=== PATIENT | male | born 2000 | race Caucasian/White ===

== ENCOUNTER 2022-02-04 17:03 | Outpatient (CLI) | payer OTHER, SELFPAY ==
[2022-02-04 17:49] LABS: T4 Thyroxine 5.89 ug/dL (5.53-11.0)
== END 2022-02-04 17:04 | disposition home or self-care (01) ==
PROVIDERS: PCP Family Medicine; Visit Provider Nurse Practitioner Family
DX: F41.9 Anxiety disorder, unspecified (principal)
CPT/HCPCS: 36415; 84436; 84443

== ENCOUNTER 2022-03-30 11:36 | Emergency (ER) | payer OTHER, SELFPAY ==
[2022-03-30 11:43] VITALS: BP 131/81; PULSE 67; RESP 20; TEMP 36.3; O2SAT 98
--- NOTE | 2022-03-30 12:39 | ED.ALLEREA ---
HPI - Allergic Reaction General Chief complaint: Allergic Reaction Stated complaint: rash Time Seen by Provider: 03/30/22 12:09 Source: patient Mode of arrival: ambulatory Limitations: no limitations History of Present Illness HPI narrative: 21 years old white male presents with itching rash started 24 hours ago, playing ball in the field with a lot of trees and bushes, also complaining of cold sores on the upper left started 2 days ago. He denies any fever, chills, nausea, vomiting, difficulty swallowing or breathing. Related Data Allergies Allergy/AdvReac Type Severity Reaction Status Date / Time No Known Allergies Allergy Verified 03/30/22 12:13 Review of Systems Review of Systems: All systems reviewed & are unremarkable except as noted in HPI and below PMFSH Past Medical History Medical History Acne vulgaris Overweight with body mass index (BMI) of 28 to 28.9 in adult Recurrent cold sores Social History Social History Smoking status: Never smoker Second hand tobacco smoke exposure: No Alcohol intake: current Drinks per week: 0 Alcohol use details: socially Exam Narrative: General appearance: Well-developed, well-nourished Skin: Hives are consistent with contact dermatitis, left upper lip blister consistent with cold sores Head: Normocephalic, nontraumatic Eyes: Clear conjunctiva ENT: Oropharynx normal, ears normal, nose normal Neck: Supple, nontender Chest and respiratory: Airway patent, no respiratory distress, no accessory muscle use Heart: Regular rate/rhythm Abdomen: Soft, nontender, no organomegaly, quiet bowel sounds Vascular: Normal peripheral pulses, normal capillary refill. Musculoskeletal: Normal range of motion, nontender back Neurologic: Alert and oriented ?3, [employer] is normal as tested, no gross motor deficit Course Vital Signs Vital signs: Vital Signs Temperature 36.3 C L 03/30/22 11:43 Pulse Rate 67 03/30/22 11:43 Respiratory Rate 20 03/30/22 11:43 Blood Pressure 131/81 03/30/22 11:43 Pulse Oximetry 98 03/30/22 11:43 Oxygen Delivery Room Air 03/30/22 11:43 Temperature 36.3 C L 03/30/22 11:43 Pulse Rate 67 03/30/22 11:43 Respiratory Rate 20 03/30/22 11:43 Blood Pressure 131/81 03/30/22 11:43 Pulse Oximetry 98 03/30/22 11:43 Oxygen Delivery Room Air 03/30/22 11:43 MDM - Allergic Reaction Differential Diagnosis Differential diagnosis: Likely allergic reaction and contact dermatitis Critical Care Time Critical Care Time Critical Care Time: No Discharge Plan Discharge Clinical Impression: Contact dermatitis, Cold sore Patient Disposition: Home, Self-Care Condition: Stable Instructions: Antibiotic Form, Contact Dermatitis (ED), Oral Herpes Simplex Virus Infections (ED) Additional Instructions: Return if symptoms are worsening , call your family physician for appointment, take Tylenol as as needed for aches and pain, continue home medications. Prescriptions: New prednisone 20 mg tablet 40 mg PO DAILY 5 Days Qty: 10 0RF valacyclovir [Valtrex] 1 gram tablet 2,000 mg PO Q12H Qty: 4 0RF No Action sertraline 50 mg tablet 50 mg PO DAILY Qty: 30 0RF valacyclovir [Valtrex] 1 gram tablet 2,000 mg PO Q12H Qty: 4 2RF Follow-up/Referrals: Meliton Dixon MD [Primary Care Provider] - Stand Alone Forms: Work/School Release IP
[2022-03-30] MEDS: predniSONE 20 MG TABLET 60 MG PO (13:17)
== END 2022-03-30 13:22 | disposition home or self-care (01) ==
PROVIDERS: Emergency Provider Emergency Medicine; PCP Family Medicine
DX: L25.9 Unspecified contact dermatitis, unspecified cause (principal); B00.9 Herpesviral infection, unspecified
CPT/HCPCS: 99283; J7512

== ENCOUNTER 2024-01-12 14:29 | Outpatient (CLI) | payer OTHER, SELFPAY ==
--- NOTE | ~2024-01-12 | XR_ITS ---
EXAMINATION: XR lumbar spine 2-3V DATE: 01/12/2024 14:41 INDICATION: Radiculopathy, site unspecified. Low back pain. TECHNIQUE: 3 views of lumbar spine including standing views were obtained. COMPARISON: None. FINDINGS: There is 6 degrees dextrocurvature of lumbar spine. Vertebral body heights and intervertebr al disc heights are normal. The facet joints are normal. IMPRESSION: 1. No etiology for the patient's symptoms. Reviewed, dictated and finalized at location E.
== END 2024-01-12 14:30 ==
LOC: MICIMG 14:30
PROVIDERS: PCP Family Medicine; Visit Provider Nurse Practitioner Adult Health
DX: M54.10 Radiculopathy, site unspecified (principal)
CPT/HCPCS: 72100

== ENCOUNTER 2024-01-23 13:42 | Outpatient (CLI) | payer OTHER, SELFPAY ==
--- NOTE | ~2024-01-23 | MR_ITS ---
EXAMINATION: MR lumbar spine wo con DATE: 01/23/2024 14:20 INDICATION: Radiculopathy, site unspecified. TECHNIQUE: Magnetic resonance imaging (MRI) of the lumbar spine was performed without intravenous con trast. Sequences included sagittal T2-weighted FSE, sagittal T2-weighted FS FSE, sagittal T1-weighted FSE, and axial T2-weighted FSE. COMPARISON: Lumbar spine radiograph 01/12/24 FINDINGS: There is 3 degrees dextrocurvature of lumbar spine. Vertebral body heights are normal. Ther e is moderately decreased disc height at L5-S1. The distal spinal cord signal intensity is normal. Th e conus medullaris is at L1. The following disc levels are specifically discussed: L1-L2: The disc does not extend beyond the endplate margin. There is mild bilateral facet joint osteo arthritis. There is no neural foraminal stenosis. There is no central canal stenosis. L2-L3: The disc does not extend beyond the endplate margin. There is mild bilateral facet joint osteo arthritis. There is no neural foraminal stenosis. There is no central canal stenosis. L3-L4: The disc does not extend beyond the endplate margin. There is mild bilateral facet joint osteo arthritis. There is no neural foraminal stenosis. There is no central canal stenosis. L4-L5: The disc does not extend beyond the endplate margin. There is mild bilateral facet joint osteo arthritis. There is no neural foraminal stenosis. There is no central canal stenosis. L5-S1: There is a right subarticular zone extrusion with mass effect on the right S1 nerve root in ri ght lateral recess. There is mild right and moderate left facet joint osteoarthritis. There is mild r ight neural foraminal stenosis. There is mild central canal stenosis. There is severe stenosis of rig ht lateral recess. IMPRESSION: 1. Extrusion at L5-S1 with mass effect on the right S1 nerve root. Reviewed, dictated and finalized at location E.
== END 2024-01-23 13:43 | disposition home or self-care (01) ==
LOC: ANHIMG 13:50
PROVIDERS: PCP Family Medicine; Visit Provider Nurse Practitioner Adult Health
DX: M51.27 Other intervertebral disc displacement, lumbosacral region (principal)
CPT/HCPCS: 72148

== ENCOUNTER 2024-02-04 10:40 | Outpatient (CLI) | payer OTHER, SELFPAY ==
--- NOTE | ~2024-02-04 | MR_ITS ---
MRI of the cervical spine Clinical History: Spinal stenosis Technique: Axial T2-weighted and gradient images, and sagittal T1-weighted, T2-weighted, and STIR ashwin ges were acquired. Findings: There is no fracture or subluxation of the cervical spine. Vertebral bodies maintain normal height and alignment. No bone marrow signal abnormality seen. No significant disc bulge or herniation seen at any cervical level. There is no spinal canal stenosis , cord compression, or neural foraminal narrowing at any cervical level. No abnormal signal seen in the spinal cord. No epidural mass or collection seen. Paravertebral soft t issues are unremarkable. Impression: Normal exam. Reviewed, dictated and finalized at location . Impression: Normal exam.
== END 2024-02-04 10:41 | disposition home or self-care (01) ==
LOC: ANHIMG 10:42
PROVIDERS: PCP Family Medicine; Visit Provider Nurse Practitioner Adult Health
DX: M48.00 Spinal stenosis, site unspecified (principal)
CPT/HCPCS: 72141